=== PATIENT | female | born 1970 | race Hispanic/Latino ===

== ENCOUNTER 2018-01-19 20:14 | Emergency (ER) | payer OTHER ==
[2018-01-19 20:14] VITALS: BMI 27.9
[2018-01-19 20:21] VITALS: O2SAT 100
[2018-01-19] MEDS ORDERED: Sodium Chloride 0.9% 1,000 ML IV STA ×2 (20:32→21:46)
--- NOTE | 2018-01-19 20:40 | ED PDOC ---
HPI: Abdomen Time Seen by Provider: 01/19/18 20:21 Chief Complaint (Nursing): Abdominal Pain Chief Complaint (Provider): side pain History Per: Patient History/Exam Limitations: no limitations Onset/Duration Of Symptoms: Hrs (3) Current Symptoms Are (Timing): Still Present Location Of Pain/Discomfort: RUQ, Epigastric, Other (right flank) Quality Of Discomfort: "Pain" Associated Symptoms: Nausea, Vomiting Last Bowel Movement: Today Additional Complaint(s): 47 y/o female presents for evaluation of right-sided abdominal pain x 3 hours. Patient states pain radiates to flank/back. Associated nausea/vomiting, increased urine frequency. Denies fever, headache, chest pain, shortness of breath, palpitations, hematuria, vaginal bleeding/discharge. Past Medical History Reviewed: Historical Data, Nursing Documentation, Vital Signs Vital Signs: Last Vital Signs Temp 97.6 F 01/19/18 20:17 Pulse 84 01/19/18 20:17 Resp 18 01/19/18 20:17 BP 148/76 01/19/18 20:17 Pulse Ox 100 01/19/18 22:23 - Medical History PMH: No Chronic Diseases - Surgical History Surgical History: - Family History Family History: States: No Known Family Hx - Living Arrangements Living Arrangements: With Family - Home Medications Home Medications: Ambulatory Orders Medication Instructions Recorded Cefuroxime Axetil [Cefuroxime] 500 mg PO Q12 #14 tablet 01/20/18 Ibuprofen [Motrin Tab] 1 tab PO Q6 PRN #20 tab 01/20/18 Ondansetron ODT [Zofran ODT] 4 mg PO Q8 PRN #10 odt 01/20/18 Tamsulosin [Flomax] 0.4 mg PO DAILY #10 cap 01/20/18 oxyCODONE/Acetaminophen [Percocet 1 ea PO Q6 PRN #12 tab 01/20/18 5/325 mg Tab] - Allergies Allergies/Adverse Reactions: Allergies Allergy/AdvReac Type Severity Reaction Status Date / Time benzonatate Allergy RASH Verified 01/19/18 20:17 Review of Systems ROS Statement: Except As Marked, All Systems Reviewed And Found Negative Gastrointestinal: Positive for: Nausea, Vomiting, Abdominal Pain Musculoskeletal: Positive for: Back Pain Physical Exam - Reviewed Nursing Documentation Reviewed: Yes Vital Signs Reviewed: Yes - Physical Exam Appears: Positive for: Well, Non-toxic, Uncomfortable Head Exam: Positive for: ATRAUMATIC, NORMAL INSPECTION, NORMOCEPHALIC Skin: Positive for: Normal Color Eye Exam: Positive for: Normal appearance ENT: Positive for: Normal ENT Inspection Cardiovascular/Chest: Positive for: Regular Rate, Rhythm Respiratory: Positive for: Normal Breath Sounds Gastrointestinal/Abdominal: Positive for: Bowel Sounds, Soft, Tenderness (epigastric, RUQ, right flank) Back: Positive for: R CVA Tenderness. Negative for: L CVA Tenderness Extremity: Positive for: Normal ROM Neurologic/Psych: Positive for: Alert, Oriented (x3) - Laboratory Results Result Diagrams: 01/19/18 20:55 01/19/18 20:55 - ECG O2 Sat by Pulse Oximetry: 100 - Progress ED Course And Treament: labs, urine, IV fluids, IV zofran, IV toradol, CT renal protocol CT abd/pelvis without contrast impression: 4x2mm calculus is noted at the right UVJ producing mild hydroureternephrosis. There is perinephric stranding 3.5cm cyst present in the mid pole of the left kidney small fat-containing umbilical hernia is noted IV morphine ordered for continued pain 22:20 Patient resting comfortably; states pain, nausea improving Case discussed with Dr. Gore, Urology on-call; states if patient feeling better can be discharged with flomax and abx and f/up outpatient 00:10 Patient resting comfortably; states pain resolved and she is ready to be discharged Patient educated on findings, discharged with rx Flomax, Percocet, Ibuprofen, Zofran, Ceftin Urine strainer given with instructions on use Advised follow up Dr. Gore Encouraged increase fluid intake Return precautions given Patient demonstrates full understanding of discharge instructions Patient requires no further intervention in the ED and is stable for discharge at this time Disposition - Clinical Impression Clinical Impression: Kidney stone on right side - Patient ED Disposition Is Patient to be Admitted: No Counseled Patient/Family Regarding: Studies Performed, Diagnosis, Need For Followup, Rx Given - Disposition Referrals: Osbaldo Gore Jr., MD [Staff Provider] - Disposition: Routine/Home Disposition Time: 00:14 Condition: IMPROVED Prescriptions: Cefuroxime Axetil [Cefuroxime] 500 mg PO Q12 #14 tablet Ibuprofen [Motrin Tab] 1 tab PO Q6 PRN #20 tab PRN Reason: Pain, Moderate (4-7) Ondansetron ODT [Zofran ODT] 4 mg PO Q8 PRN #10 odt PRN Reason: Nausea/Vomiting oxyCODONE/Acetaminophen [Percocet 5/325 mg Tab] 1 ea PO Q6 PRN #12 tab PRN Reason: Pain, Severe (8-10) Tamsulosin [Flomax] 0.4 mg PO DAILY #10 cap Instructions: Kidney Stones in Adults, Renal Colic Forms: [facility] ([place]ic), [facility] ED School/Work Excuse
[2018-01-19 21:02] LABS: BASO # 0.1 K/uL (0.0-0.2); BASO % 0.7 % (0.0-2.0); EOS # 0.1 K/uL (0.0-0.7); EOS % 0.3 % (0.0-4.0); HEMOGLOBIN 12.5 g/dL (12.0-16.0); LYMPH % 12.9 % (20.0-40.0); MEAN CELL VOLUME 87.6 fl (81.0-99.0); MEAN CORPUSCULAR HEMOGLOBIN 29.1 pg (27.0-31.0); MEAN CORPUSCULAR HGB CONC 33.2 g/dL (33.0-37.0); MEAN PLATELET VOLUME 9.2 fl (7.2-11.7); MONO # 0.8 K/uL (0.0-0.8); MONO % 5.2 % (0.0-10.0); NEUT # 12.8 K/uL (1.8-7.0); NEUT % 80.9 % (50.0-75.0); RBC 4.29 Mil/uL (3.80-5.20); RED CELL DISTRIBUTION WIDTH 13.7 % (11.5-14.5); WHITE BLOOD COUNT 15.8 K/uL (4.8-10.8)
[2018-01-19 21:09] LABS: ALB/GLOB RATIO 1.2 (1.0-2.1); ALBUMIN 4.6 g/dL (3.5-5.0); ALT/SGPT 23 U/L (9-52); AST/SGOT 29 U/L (14-36); BLOOD UREA NITROGEN 14 mg/dl (7-17); CALCIUM 10.2 mg/dL (8.4-10.2); GFR NON-AFRICAN AMERICAN > 60; LIPASE 67 U/L (23-300)
[2018-01-19 21:18] LABS: SQUAMOUS EPITHIAL 15 /hpf (0-5); URINE AMORPHOUS SEDIMENT RARE /ul (<OCC); URINE BACTERIA OCC (<OCC); URINE BILIRUBIN NEGATIVE (NEGATIVE); URINE BLOOD NEGATIVE (NEGATIVE); URINE CLARITY TURBID (Clear); URINE COLOR AMBER (YELLOW); URINE GLUCOSE (UA) NEG (Normal); URINE LEUKOCYTE ESTERASE NEG Leu/uL (Negative); URINE PROTEIN 100 mg/dL (NEGATIVE); URINE UROBILINOGEN 0.2-1.0 mg/dL (0.2-1.0)
[2018-01-19] MEDS ORDERED: cefTRIAXone (Rocephin) 1 gm Inj ONE (22:06)
[2018-01-20 02:11] VITALS: BP 138/79; PULSE 86; RESP 15; TEMP 8.2
--- NOTE | 2018-01-20 10:48 | CT ---
Date of service: 01/19/2018 PROCEDURE: CT Abdomen and Pelvis without intravenous contrast HISTORY: right flank pain, vomiting COMPARISON: None. TECHNIQUE: Contiguous images were obtained from the domes of the diaphragms to the upper thighs without the administration of intravenous contrast. Oral contrast was not administered. Radiation dose: Total exam DLP = 637.3 mGy-cm. This CT exam was performed using one or more of the following dose reduction techniques: Automated exposure control, adjustment of the mA and/or kV according to patient size, and/or use of iterative reconstruction technique. FINDINGS: LOWER THORAX: Unremarkable. LIVER: Unremarkable. No gross lesion or ductal dilatation. GALLBLADDER AND BILE DUCTS: Unremarkable. PANCREAS: Unremarkable. No gross lesion or ductal dilatation. SPLEEN: Unremarkable. ADRENALS: Unremarkable. No mass. KIDNEYS AND URETERS: 3.8 cm left upper pole cyst. 7 x 3 mm right ureterovesicular junction calculus causing mild right hydroureteronephrosis. Right renal collecting system fluid is higher density, possibly hemorrhagic. No solid mass. VASCULATURE: Unremarkable. No aortic aneurysm. BOWEL: Small hiatal hernia. No obstruction. No gross mural thickening. APPENDIX: Unremarkable. Normal appendix. PERITONEUM: Small fat containing umbilical hernia. No free fluid. No free air. LYMPH NODES: Unremarkable. No enlarged lymph nodes. BLADDER: Unremarkable. REPRODUCTIVE: Unremarkable. BONES: No acute fracture. L4-5 disc space narrowing. OTHER FINDINGS: None. IMPRESSION: 7 x 3 mm obstructive right ureterovesicular junction calculus causing mild right hydroureteronephrosis. Collecting system fluid is slightly higher density than simple fluid, possibly hemorrhagic. Additional findings as above.
== END 2018-01-20 00:45 | disposition home or self-care (01) ==
LOC: H.ER 20:14
DX: N20.0 Calculus of kidney (principal)
CPT/HCPCS: 74176; 80053; 81003; 81025; 83690; 85025; 87086; 96374; 96375; 96376; 99283; J0696; J1885; J2270; J2405; J7030